=== PATIENT | male | born 1955 | race Caucasian/White ===

== ENCOUNTER → 2024-10-31 13:56 | Outpatient (REF) | payer MEDICARE, OTHER, SELFPAY | LOC: RCS 13:56 | PROVIDERS: ATTENDING PHYSICIAN Internal Medicine Cardiovascular Disease; FAMILY PHYSICIAN Family Medicine | DX: R06.00 Dyspnea, unspecified (principal); R07.9 Chest pain, unspecified | CPT/HCPCS: 93017; 93350 ==

== ENCOUNTER → 2025-06-01 07:39 | Outpatient (REF) | payer MEDICARE, OTHER, SELFPAY | LOC: PAVMRI 07:39 | PROVIDERS: ATTENDING PHYSICIAN Physician Assistant Surgical; FAMILY PHYSICIAN Family Medicine | DX: M54.16 Radiculopathy, lumbar region (principal) | CPT/HCPCS: 72148 ==